=== PATIENT | female | born 1965 ===

== ENCOUNTER 2024-02-08 00:16 | Emergency (ER) | payer OTHER, BC, SELFPAY ==
[2024-02-08 00:16] VITALS: BMI 31.4
[2024-02-08 00:18] VITALS: BP 164/94
[2024-02-08 01:42] VITALS: BP 137/82
--- NOTE | 2024-02-08 01:58 | ED.GENMED ---
History of Present Illness
<DEANGELO Correa - Last Filed: 02/08/24 03:42>
General
Chief Complaint: Extremity Pain (non-traumatic)
Source: patient
Time Seen by Provider: 02/08/24 01:48
Nursing documentation reviewed up to this point in time: agreed with
History of Present Illness
History of Present Illness:
Pt is a 58 yo F who presents to the ED with pain in the right leg. Pt states that the pain began tonight while laying down. She states that the pain began in her right lower calf and that it is now radiating up to her knee and that her anterior knee
is painful. Pt states that the pain is worse when moving the right leg and putting weight on the leg. Pt states that she is able to move her knee and foot. Pt states that the knee feels warm. Pt denies injury, trauma, cut, or scrape to the right
leg. Pt states that on Monday she had a 'Charley horse' in her right calf when she was asleep. Pt denies fever, chills, chest pain, shortness of breath, redness to right leg, numbness or tingling in extremities. Pt denies having a history of a
blood clot or being on blood thinners.
Review of Systems
<DEANGELO Correa - Last Filed: 02/08/24 03:42>
Review of Systems
Allergies reviewed?: Yes
Constitutional: Reports no symptoms
EENT: Reports no symptoms
Respiratory: Reports no symptoms
Cardiac: Reports no symptoms
ABD/GI: Reports no symptoms
Musculoskeletal: Reports other (pain in lower right calf radiating to knee)
Neurological: Reports no symptoms
Phy Exam
<DEANGELO Correa - Last Filed: 02/08/24 03:42>
General Physical Exam
General Presentation: well appearing and no apparent distress
General age: appears stated age
General Skin: warm
General Habitus: normal
General Mental: alert
General Hydration: appears well hydrated
Cardiovascular Exam
Cardiovascular Exam: regular rate/rhythm
Pulmonary Exam
Pulmonary Exam: lungs clear
Skin Exam
Skin Exam: normal color and warmth (right leg below the knee)
Course
<DEANGELO Correa - Last Filed: 02/08/24 03:42>
Orders/Labs/Results
Orders:
Orders
02/08/24 03:29
US Periph Venous LOWER Ext RT Urgent
Comment:
Reason For Exam: pain right calf x few days
Vital Signs
Initial and Last Documented VS:
Initial Vital Signs
Temp Pulse Resp BP Pulse Ox
97.8 F 62 16 164/94 99
02/08/24 00:18 02/08/24 00:18 02/08/24 00:18 02/08/24 00:18 02/08/24 00:18
Last Documented Vital Signs
Temp Pulse Resp BP Pulse Ox
97.8 F 62 16 129/73 93
02/08/24 00:18 02/08/24 00:18 02/08/24 00:18 02/08/24 03:00 02/08/24 03:01
<Germania Traore DO - Last Filed: 02/08/24 04:28>
Orders/Labs/Results
Orders:
Orders
02/08/24 03:29
US Periph Venous LOWER Ext RT Urgent
Comment:
Reason For Exam: pain right calf x few days
Vital Signs
Initial and Last Documented VS:
Initial Vital Signs
Temp Pulse Resp BP Pulse Ox
97.8 F 62 16 164/94 99
02/08/24 00:18 02/08/24 00:18 02/08/24 00:18 02/08/24 00:18 02/08/24 00:18
Last Documented Vital Signs
Temp Pulse Resp BP Pulse Ox
97.8 F 62 16 129/73 93
02/08/24 00:18 02/08/24 00:18 02/08/24 00:18 02/08/24 03:00 02/08/24 03:01
<DEANGELO Correa - Last Filed: 02/08/24 03:42>
*Critical Care Note
Total Time (30-74mins, 75-104mins- exclusive of procedures): Not Applicable
<Germania Traore DO - Last Filed: 02/08/24 04:28>
*Radiology
Radiology exam reviewed: other (Venous Doppler right lower extremity negative for DVT. Large Hannon's cyst popliteal fossa. Initial verbal report from magnetic testing technician.)
*Pulse Oximetry
Patient hypoxic: no
ED Attending Note
<DEANGELO Correa - Last Filed: 02/08/24 03:42>
-
Portions of this chart may have been created with voice recognition software.� Occasional wrong word or��sound alike� substitutions may have occurred due to the inherent limitations of voice recognition software.
<Germania Traore DO - Last Filed: 02/08/24 04:28>
ED Attending Note
Patient seen and examined by attending physician: Yes
I performed the substantive portion of visit, reviewed & personally made and approve the management plan that is documented in note by myself or YAZ.: Yes
ED Attending Note:
This is a 58-year-old woman with no significant past medical history who complains of right posterior lower calf pain that began the night of February 03 when she awoke promptly with a charley horse in her right posterior calf. Charley horse was
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 Since then she has had right posterior calf pain, worse with ambulation and now
progressive to right knee pain. She has not had a fall. No fever no chills. She denies weakness or numbness.
She has not been taking anything for pain.
No recent travel. No history of thromboembolism nor family history of such.
GENERAL: 58-year-old woman appears her stated age, awake and alert, pleasant, appears in no acute distress. is accompanying.
NECK: Supple, nontender, no meningismus, no significant adenopathy.
ENT: oral mucosa is moist. No rhinorrhea.
CARDIAC: Regular rate and rhythm. no murmur.
LUNGS: Clear breath sounds bilaterally, no acute respiratory distress, no wheezes/rales/rhonchi
ABDOMEN: Soft, nondistended, without focal tenderness
NEUROLOGICAL: Alert and oriented x3, no focal neuro deficits. Gait is steady, mildly antalgic favoring right lower extremity.
SKIN: Warm and dry, normal color, skin intact. No rash.
MUSCULOSKELETAL: No C/C/E. peripheral pulses are full and equal b/l. Mild to moderate tenderness right posterior lower leg. There is mild tenderness to the right anterior knee. No knee joint effusion, full knee range of motion without difficulty.
There is no erythema. No soft tissue swelling. No palpable cords.
PSYCH: Normal and appropriate interaction.
Concern for right gastrocnemius muscle strain, other consideration is DVT. Right knee strain. There is no evidence of cellulitis nor joint effusion. No trauma.
Will check ultrasound right lower extremity assess for potential DVT.
04:15
Ultrasound is negative for DVT.
There is note of a Bakers cyst right popliteal fossa.
Will medicate for pain with ibuprofen.
Recommend supportive measures, rest, elevating leg, local heat.
Prescription for ibuprofen has been provided for as needed pain.
Recommend follow-up with PCP and as far as Hannon's cyst recommend follow-up with orthopedics.
Discharge Plan
Departure
Patient Disposition: Home (Routine Discharge)
Date of Disposition: 02/08/24
Time of Disposition: 04:18
Patient with high blood pressure during this ER visit?: No
Condition: Good
Discharge Problem:
Strain of right calf muscle, Hannon's cyst of knee
Instructions: Hannon's Cyst (DC), Lower Extremity Muscle Strain (DC)
Prescriptions:
New
ibuprofen 600 mg tablet
600 mg PO QID PRN (Reason: fever or pain) Qty: 20 0RF
Referrals:
Hank Dutta MD [Family Provider] - Call in 1-3 days for appt
Rafa Moore MD [Active] - Call in 1-3 days for appt
Interventions
Interventions:
*Risk Screen - Suicide Last Done: 02/08/24 00:18
*General Assessment Last Done: 02/08/24 01:37
*Neglect/Abuse Screening Last Done: 02/08/24 00:18
*ED COVID-19 Vaccine History Last Done: 02/08/24 01:37
ED-Skin Assessment Last Done: 02/08/24 01:37
ED-Peripheral Vascular Assessment Last Done: 02/08/24 01:37
ED-Musculoskeletal Assessment Last Done: 02/08/24 01:37
Discharge Date and Time
Print Language: THAI
[2024-02-08 02:00] VITALS: BP 140/99
[2024-02-08 03:00] VITALS: BP 129/73
--- NOTE | 2024-02-08 03:36 | DOWNTIME ---
There was a [employer] Downtime on 02/08/2024 from 0200 to 02/08/2024 at 0325 . Downtime documentation of patient's care, including medication administrations, has been reconciled in the electronic record per guidelines. Refer to the
patient's paper chart under the miscellaneous tab to see printed paper medication records and downtime forms.
[2024-02-08 04:00] VITALS: BP 123/77
== END 2024-02-08 04:45 | disposition home or self-care (01) ==
LOC: EMR 00:16
PROVIDERS: EMERGENCY PHYSICIAN Emergency Medicine; FAMILY PHYSICIAN Family Medicine
DX: S86.111A Strain of other muscle(s) and tendon(s) of posterior muscle group at lower leg level, right leg, initial encounter (principal); M71.21 Synovial cyst of popliteal space [Baker], right knee; X58.XXXA Exposure to other specified factors, initial encounter
CPT/HCPCS: 99284; 93971